=== PATIENT | male | born 1990 | race Caucasian/White ===

== ENCOUNTER 2025-04-17 14:10 | Emergency (ER) | payer MEDICARE, MEDICAID ==
[~2025-04-17] VITALS: Ht 170.2 cm; Wt 100.0 kg
[~2025-04-17 14:10] MED LIST: BENZ-247 PO; DIPH-901 PO; LURA40TA2 PO; PALI234D IM
[2025-04-17 14:23] VITALS: TEMP 99.7
[2025-04-17] MEDS ORDERED: TRAZ-252 PO (14:25)
[2025-04-17] MEDS ORDERED: HALO10TA21 PO (14:25)
[2025-04-17] MEDS ORDERED: HALO100V36 IM (14:25)
[2025-04-17] MEDS ORDERED: CEPH-558 PO (14:48)
[2025-04-17] MEDS ORDERED: SULF1TAB94 PO (14:48)
[2025-04-17] MEDS: SULFAMETHOX/TRIMETH DS 800-160 MG/TABLET PO ONE (15:18)
[2025-04-17] MEDS: CEPHALEXIN MONOHYDRATE 500 MG CAPSULE PO ONE (15:18)
[2025-04-17 16:03] VITALS: BP 130/85; PULSE 95; RESP 18; O2SAT 99
== END 2025-04-17 16:05 | disposition home or self-care (01) ==
LOC: EMS 14:10
DX: L03.011 Cellulitis of right finger (principal); F20.9 Schizophrenia, unspecified; F17.210 Nicotine dependence, cigarettes, uncomplicated; Z88.5 Allergy status to narcotic agent; Z79.899 Other long term (current) drug therapy
CPT/HCPCS: 10060; 99283